=== PATIENT | female | born 1990 | race Caucasian/White ===

== ENCOUNTER 2021-02-25 17:56 | Outpatient (CLI) | payer MEDICAID, SELFPAY ==
[2021-02-25 18:17] VITALS: BP 130/87; PULSE 96; RESP 16; TEMP 36.9; O2SAT 99; BMI 27.9
[2021-02-25] MEDS: 0.9% Saline Lock 10 ML Syringe IV (18:17)
[2021-02-25 18:50] VITALS: BP 112/74; PULSE 81; RESP 16; TEMP 36.9; O2SAT 100
[2021-02-25 19:42] VITALS: BP 136/82; PULSE 78; RESP 16; TEMP 37; O2SAT 100
== END 2021-02-25 19:50 | disposition home or self-care (01) ==
LOC: MS3OUT 17:57 → MS3 17:58
PROVIDERS: PCP Family Medicine; Referring Provider Nurse Practitioner Adult Health; Visit Provider Nurse Practitioner Adult Health
DX: U07.1 COVID-19 (principal)
CPT/HCPCS: J7050; M0245; Q0245; A4216

== ENCOUNTER 2021-09-07 19:00 | Inpatient (IN) | payer MEDICAID, SELFPAY ==
[2021-09-07] VITALS (10 sets, daily range): BP systolic 114–139; BP diastolic 65–94; PULSE 72–93; TEMP 36.1–36.6; O2SAT 96–98; BMI 34.2
[2021-09-07] MEDS: Lactated Ringers 1,000 ML 50 ML IV (20:00)
[2021-09-07] MEDS: Oxytocin 30 units/NS 500 ml 30 UNITS/500 ML IV.SOLN IV (20:25)
[2021-09-07 20:30] LABS: Absolute Lymphocyte Count 1.94 X10^3/uL (0.83-4.51); Absolute Neutrophil Count 5.4 X10^3/uL (2.0-7.7); Basophil# 0.04 X10^3/uL; Basophil% 0.5 % (0-1); Eosinophil# 0.06 X10^3/uL; Eosinophils% 0.7 % (0-5); Hematocrit 33.7 % (37-47); Hemoglobin 10.7 g/dL (12.0-15.0); Lymphocyte # 1.94 X10^3/ul (0.83-4.51); Lymphocyte % 22.9 % (19-41); Mean Corp Hgb Conc 31.8 g/dL (32-36); Mean Corpuscular Hgb 27.4 pg (27.0-32.0); Mean Corpuscular Volume 86.4 fL (81-99); Mean Platelet Vol. 11.5 fl (6.2-12.0); Monocyte# 0.88 X10^3/uL; Monocyte% 10.4 % (0-10); NRBC Flagged by Analyzer 0 % (0-5); Neutrophil # 5.44 X10^3/uL (2.7-7.7); Neutrophil % 64.3 % (47-70); Platelet Count 253 K/mm3 (150-450); RBC Distribution Width CV 14.3 % (11.6-14.6); RBC Distribution Width SD 44.6 fl (35.1-43.9); White Blood Count 8.5 K/mm3 (4.4-11.0)
--- NOTE | 2021-09-07 20:53 | PCM.HP.OB ---
HPI - General General Date of Admission: 09/07/21 HPI Narrative BRITTANI BURGOS, is a 31 F who presents for induction of labor for autoimmune disorder (lupus). Patient reports history of depression, anxiety, and ITP. care was coordinated with [facility]. [facility] Medical History (Updated 09/07/21 @ 22:21 by Mildred Mcclure CNM) Anxiety Asthma Autoimmune disease Depression Headache Home Medications hydroxychloroquine 200 mg PO/SL DAILY Lupus 09/07/21 [History Last Taken 09/07/21 08:00] Allergy/AdvReac Type Severity Reaction Status Date / Time doxycycline Allergy Severe vomitting Verified 02/23/21 16:37 metronidazole [From Flagyl] Allergy Severe vomiting Verified 02/23/21 16:38 topiramate [From Topamax] Allergy Severe hives Verified 02/23/21 16:38 Penicillins Allergy hives Verified 02/23/21 16:37 Surgical History (Updated 09/07/21 @ 20:53 by Torie Samuel) History of surgery Social History Smoking Status: Former smoker History Elective abortions Hx Para 1 Spontaneous abortions Hx # Term Pregnancies Ectopic pregnancies Hx # Pregnancies Multiple births # of living children NST FHR Rate Baby A Baseline: 135 Variability:: Moderate Accelerations:: 15 x 15 Decelerations:: None NST Reactive:: Yes FHR Category:: Category I Uterine Activity:: 2-4 min ROS Eyes Eyes: Denies blurry vision, change in vision or spots in vision ENT HEENT: Denies dizziness or headache(s) Cardiovascular Cardiovascular: Denies abdominal pain, chest pain or dyspnea Respiratory/Chest Respiratory/Chest: Denies cough, dyspnea, shortness of breath at rest or shortness of breath with exertion Gastrointestinal Gastrointestinal: Denies abdominal pain, diarrhea or vomiting Genitourinary Genitourinary: Denies change in urinary stream, difficulty urinating or dysuria Musculoskeletal Musculoskeletal: Reports none Integumentary Integumentary: Denies rash Neurologic Neurologic: Denies dizziness, headache(s), memory loss or weakness Psychiatric Psychiatric: Reports none Vital Signs Vital Signs Vital Signs: 09/07/21 19:30 09/07/21 19:31 09/07/21 19:31 Temperature Temperature Source Pulse Rate 93 Blood Pressure 114/67 BP Systolic 114 BP Diastolic 67 Pulse Ox 97 09/07/21 19:30 09/07/21 19:30 Temperature 97.8 F Temperature Source Temporal Pulse Rate Blood Pressure BP Systolic BP Diastolic Pulse Ox Weight Weight: 199 lb 6.4 oz Body Mass Index (BMI) 34.2 Physical Exam Const alert, oriented x3 and no apparent distress General Appearance: cooperative Orientation / Consciousness: awake Exam Limitations: no limitations HEENT normocephalic Head and Scalp: normal to inspection Eyes General Eye: normal appearance of both eyes Neck full ROM and no lymphadenopathy Lymph Lymphatic: no lymphadenopathy noted Chest inspection of chest normal Resp normal respiratory effort, normal air movement and clear to auscultation bilaterally Effort and Inspection: able to speak in complete sentences and symmetric chest movement Cardio regular rate and regular rhythm GI normal to inspection, nondistended, normoactive bowel sounds Manual OB Exam: presentation cephalic, dilated 3, effaced 70 and station -2 Back/Spine normal ROM Extremity full ROM and no calf tenderness Skin no rashes or lesions noted General Skin Exam: no breakdown Neuro oriented x3 and CN's II-XII intact bilaterally Psych mental status grossly normal and thought process normal Labs Labs Labs: Blood Type Pending Antibody Screen Pending Hct 33.7 % (37-47) L Hgb 10.7 g/dL (12.0-15.0) L A+ Rubella- immune HB- neg HC- neg HIV- NR RPR- NR GBS negatvie Assessment & Plan (1) Systemic lupus complicating : (2) 39 weeks gestation of : PLAN: Plan Admit to labor and delivery Routine labs Start IV fluids and titrate per orders GBS negative Cat. 1 tracing, NST reactive CE- 3/70/-2 Start Pitocin at 2 mu/min and increase per policy Will recheck in 3 hours, if no change will AROM Epidural when indicated Dr. Dickens notified of admission and involved in plan of care/ collaborating physician
[2021-09-07] MEDS: LACTATED RINGERS 500 ML 999 ML IV (23:14)
[2021-09-07] MEDS: fentaNYL 100 MCG/2 ML Ampul IV (23:53)
[2021-09-07] MEDS: 0.9% Saline Lock 10 ML Syringe IV (23:53)
[2021-09-08] VITALS (53 sets, daily range): BP systolic 99–162; BP diastolic 53–82; PULSE 73–109; RESP 16–18; TEMP 36.2–36.8; O2SAT 90–99
[2021-09-08] MEDS: fentaNYL-bupivacaine (epidural) 100 ML BAG EPIDURAL (01:05)
[2021-09-08] MEDS: Ondansetron 4 MG/2 ML Vial IV (03:34)
[2021-09-08] MEDS: 0.9% Saline Lock 10 ML Syringe IV (03:34)
[2021-09-08] MEDS: Mag Hydrox/Al Hydrox/Simeth 30 ML UDC PO (03:53)
--- NOTE | 2021-09-08 05:03 | PLAC_PTH ---
PATIENT: BRITTANI BURGOS LOC: WP U#:[id number] AGE/SX: 31/F ROOM: [facility] RE09/07/[address]: Mildred Mcclure CNM : 1990 BED: 1 DIS: 09/09/2021 SPEC #: [id number] RECD: 09/08/21 07:30 STATUS: ADARSH WICHO #: [id number] IBETH: 09/08/21 05:[address]: Mildred Mcclure DEPT: SURGICAL PATHOLOGY RECD BY: Anthony Ruelas ENTERED: 09/08/21 07:51 SP TYPE: PLACENTA OTHR DR: Dr. Severo Mi MD Tissues: Placenta, NOS Procedures: Surgery Specimen Level V HEADER OPERATION: Vaginal delivery PRE-OP DIAGNOSIS: Circumvallate placenta / mom lupus TISSUE SUBMITTED: Placenta MICROSCOPIC DIAGNOSIS Segura placenta (514 gm): Umbilical cord ? trivascular with no inflammation. Placental membranes ? no pathologic change. Placental disc ? focal remote infarct with fibrinoid plaque. Increased intraparenchymal microcalcifications. Focal organizing hemorrhage. AM:jacqueline 09/10/2021 MICROSCOPIC DESCRIPTION Slides are reviewed. GROSS DESCRIPTION SPECIMEN: PLACENTA / CLINICAL INFORMATION: A. Weight: 3.67 kg B. Gestational Age: 39 weeks C. Sex: Male PLACENTAL WEIGHT (POST FIXATION): 514 gm PLACENTAL DIMENSIONS: 16.5 x 15 x 3.5 cm PLACENTAL SHAPE: Usual ovoid PLACENTAL WEIGHT FOR GESTATIONAL AGE: Within 10-99th percentile MEMBRANES - Present A. Insertion: Marginal B. Site of rupture from edge: 7.4 cm from edge of placental disc C. Color of membrane: Isaacs-cazares D. Abnormalities: None UMBILICAL CORD - Present A. Color: Isaacs-cazares B. Insertion: Eccentric C. Length: 54 cm D. Diameter: 1.2 cm E. Number of vessels: Three F. Abnormalities: None PLACENTAL DISC - Present A. Color of surface: Isaacs-cazares B. surface abnormalities: None C. Maternal cotyledons: Intact with minimal tears D. Attached retro placental clot: No clot E. Cut surface: Dark red and spongy F. Lesions: A light isaacs, triangular-shaped lesion is present in the placental floor measuring 1.5 x 1 cm. G. Separate clot: Absent SECTIONS SUBMITTED: 1. Umbilical cord ( end notched) 2. Umbilical cord, placental end 3. Membrane roll 4. Placental disc, and maternal surfaces, lesion 5. Placental disc, and maternal surfaces 6. Placental disc, and maternal surfaces AM:jacqueline 09/09/2021 TC:5 CPT: 18356
[2021-09-08] MEDS: Oxytocin 30 units/NS 500 ml 30 UNITS/500 ML IV.SOLN 334 UNITS IV (05:06)
--- NOTE | 2021-09-08 05:26 | EX.PCM.OBRPT ---
Assessment & Plan (1) 39 weeks gestation of : (2) Systemic lupus complicating : (3) (spontaneous vaginal delivery): (4) Laceration, obstetrical, first degree: Vaginal Delivery Maternal Presentation Maternal Presentation: Medically Indicated Induction Maternal Presentation: at 39.2 weeks gestation for a scheduled induction for lupus. Type of Induction: Pitocin and Amniotomy Medical Reason for Induction: Maternal Medical Condition: list: (LUPUS) Operative Information Date of Procedure: 09/08/21 Pre-Operative Diagnosis: Term gestation, induction of labor Post-Operative Diagnosis: Same, live male Surgery / Procedure Performed: Spontaneous Vaginal Delivery Type of Anesthesia: Epidural Drain: [place] to straight drain Estimated Blood Loss: 300 Time of Delivery: 05:03 Findings Description of Procedure: Called to patient's room for complete dilation. Provided bedside support and pushed with patient. head delivered over intact perineum. Nuchal cord x2 around neck and easily reduced. Anterior shoulder followed by remainder of infant body delivered with next push. Vigorous male placed on maternal abdomen and was attended to by nursing. Pitocin IV started for active management of the third stage. 3 vessel cord clamped and cut by patient's mother after 3 minutes. Infant placed immediately skin to skin with patient. Placenta delivered spontaneously and intact. Circumvallate placenta noted. Sent to pathology due to maternal autoimmune disease. First degree laceration repaired in usual fashion using 3-0 Vicryl Rapid. Hemostasis obtained. Fundus firm 2 below U. EBL 300 APGARS Mom and infant bonding good at this time. Dr. Dickens notified of delivery. Presentation: Vertex Amniotic Membrane Rupture Type: Artificial Time of Membrane Rupture: 2305 Amniotic Fluid Description: Clear and - (Terminal mec) Placental Delivery Description: Spontaneous Placenta Disposition: Sent to Pathology Specimen(s) Removed: Circumvallate Placenta noted Cord Vessel Description: 3 Vessels Cord Entanglement: Around neck x 2, loose Nuchal Cord Compression: Without compression Infant A Gender: Male (1 minute): 8 (5 minute): 9 Delayed Cord Clamping: Yes Post Vaginal Delivery Medications Given After Delivery: IV Pitocin Episiotomy Description: None Laceration: 1st degree
[2021-09-08 07:30] LABS: Pathology Specimen OB SEE PATHOLOGY REPORT
--- NOTE | 2021-09-08 08:00 | NURSING ---
Epidural catheter removed, blue tip intact.
[2021-09-08] MEDS: Acetaminophen 500 MG Tablet 1000 MG PO (08:08)
[2021-09-08] MEDS: Hydroxychloroquine 200 MG Tablet PO (09:33)
[2021-09-08] MEDS: Prenatal Vits Tablet 1 TABLET PO (11:05)
[2021-09-08] MEDS: Naproxen 500 MG Tablet PO (23:30)
[2021-09-09 05:10] VITALS: BP 109/65; PULSE 66; RESP 16; TEMP 37.2; O2SAT 97
[2021-09-09 07:50] VITALS: BP 116/66; PULSE 87; RESP 16; TEMP 36.2; O2SAT 98
[2021-09-09] MEDS: Hydroxychloroquine 200 MG Tablet PO (09:45)
[2021-09-09] MEDS: Senna/Docusate Sodium 1 Tablet PO (09:45)
[2021-09-09] MEDS: Prenatal Vits Tablet 1 TABLET PO (09:46)
--- NOTE | 2021-09-09 12:01 | PCM.PN.OB ---
Subjective Subjective Well controlled. Average lochia Objective Data Objective Data Vital Signs: Vital Signs Temp Pulse Resp BP Pulse Ox O2 Del Method 97.2 F L 87 16 116/66 98 Room Air 09/09/21 07:50 09/09/21 07:50 09/09/21 07:50 09/09/21 07:50 09/09/21 07:50 09/09/21 07:50 Oxygen Delivery Method Room Air Weight: 90.446 kg Body Mass Index (BMI) 34.2 Intake & Output: Intake and Output for Last 24 Hours 09/07/21 09/08/21 09/09/21 23:59 23:59 23:59 Intake Total 516.35 / 516.35 1700.67 / 1700.67 Output Total 2100 / 2100 Balance 516.35 / 516.35 -399.33 / -399.33 Lab / Micro Data Result Diagrams: 09/07/21 20:00 Micro: Microbiology 09/07/21 20:00 Nasal Secretion SARS-CoV-2 Antigen (Rapid) - Final Physical Exam Const alert and no apparent distress Narrative: Fundus firm, below umbilicus. Assessment & Plan (1) (spontaneous vaginal delivery): COMMENT: day #1. Infant is breast-feeding and doing well. Patient is doing well. Desires discharge home later today if okay with pediatrics (2) 39 weeks gestation of :
--- NOTE | 2021-09-09 12:01 | PCM.DC.SUM ---
Providers Date of Admission: 09/07/21 Date of Discharge: 09/09/21 Primary Care Physician: Dr. Severo Mi MD Reason For Visit: INDUCTION Diagnosis Discharge Diagnosis (1) (spontaneous vaginal delivery): Status: Acute Code(s): O80 - Encounter for full-term uncomplicated delivery (2) 39 weeks gestation of : Status: Acute Code(s): Z3A.39 - 39 weeks gestation of Medications at Discharge Home Medications 1 tablet PO/SL DAILY 09/07/21 hydroxychloroquine 200 mg PO/SL DAILY Lupus 09/07/21 Hospital Course Operations - ( on 09/08/2021) Procedures None Summary of Care Provided Hospital Course: 31-year-old multigravida female admitted for induction of labor due to diagnosis of lupus. She had a spontaneous vaginal delivery at 39 weeks without complication. was doing well. By day #1 patient was urinating, ambulating and tolerating regular diet and desired discharge home. Weight / BMI Weight Weight: 90.446 kg Body Mass Index (BMI) 34.2 ABG / Lab / Microbiology Data Result Diagrams: 09/07/21 20:00 Microbiology: Microbiology 09/07/21 20:00 Nasal Secretion SARS-CoV-2 Antigen (Rapid) - Final D/C Instructions May resume sexual activity in: 6 weeks Please Follow Up With: Mana Phillips MD When: Follow up with our office in 1-2 and 6 weeks or as needed. [phone] Meaningful Use Info Meaningful Use Diagnoses (Choose all that apply): None applicable Discharge Plan Admission Admit Date/Time: 09/07/21 19:00 Primary Reason for Your Visit: Vaginal delivery Attending Provider: Mildred Mcclure Primary Care Provider: Severo Mi Discharge Orders/Prescriptions Prescriptions: No Action hydroxychloroquine 200 mg capsule 200 mg PO/SL DAILY 1 tablet PO/SL DAILY Referrals / Follow Up: Severo Mi MD [Primary Care Provider] - Disposition Disposition (needs filled in before D/C Order can be placed): Home, Self Care
--- NOTE | 2021-09-09 14:45 | NURSING ---
johan into see pt
[2021-09-09 16:00] VITALS: BP 113/58; PULSE 82; RESP 15; TEMP 36.2
--- NOTE | 2021-09-09 17:54 | NURSING ---
1710 nursed from 1600 to 1710
== END 2021-09-09 17:50 | disposition home or self-care (01) | DRG 560 ==
PROVIDERS: Admitting Provider Advanced Practice Midwife; PCP Family Medicine; Visit Provider Advanced Practice Midwife
DX: O99.892 Other specified diseases and conditions complicating childbirth (principal); Z37.0 Single live birth; M32.9 Systemic lupus erythematosus, unspecified; O43.113 Circumvallate placenta, third trimester; O70.0 First degree perineal laceration during delivery; O69.81X0 Labor and delivery complicated by cord around neck, without compression, not applicable or unspecified; Z3A.39 39 weeks gestation of pregnancy; Z86.16 Personal history of COVID-19; Z87.891 Personal history of nicotine dependence
CPT/HCPCS: 59025; 59050; 85025; 86850; 86900; 86901; 87811; 88307; 99218; 99406; J7120; A4216; G0378; J2405

== ENCOUNTER 2023-02-05 14:05 | Outpatient (CLI) | payer MEDICAID, SELFPAY ==
[2023-02-05 14:21] VITALS: BMI 35.6
[2023-02-05 14:29] VITALS: TEMP 36.4
[2023-02-05 14:30] VITALS: BP 126/78; PULSE 81; PULSE 84; O2SAT 97
[2023-02-05 14:38] LABS: Color, Urine Yellow (Yellow); Glucose, Dipstick Normal (Normal); Ketone-Dipstick 50 mg/dl (Negative); Leukocyte Esterase-Dipstick 25 /ul (Negative); Nitrite-Dipstick Negative (Negative); Occult Blood-Urine 250 /ul (Negative); Protein-Dipstick 15 mg/dl (Negative); Specific Gravity, Urine 1.025 (1.002-1.030); Urine Clarity Clear (Clear); Urine Urobilinogen Normal (Normal)
[2023-02-05 14:49] LABS: Urine Bilirubin Dipstick 1 mg/dL (Negative)
[2023-02-05] MEDS: Lactated Ringers 1,000 ML 999 ML IV (15:12)
[2023-02-05] MEDS: Cefazolin 2 GM in 0.9% Normal Saline (100mL Bag) 100 ML IV (15:23)
[2023-02-05 17:19] VITALS: BP 119/61; PULSE 75; TEMP 36.6
--- NOTE | 2023-02-09 07:52 | OB.TRI.HP_ITS ---
HPI - General General Date of Service: 02/05/23 HPI Narrative BRITTANI BURGOS, is a 32 F @ 36.6 weeks c/o lower back pain. Denies VB, lof. PFSH PFSH Medical History (Updated 02/09/23 @ 07:[address] Pham Brice MD) Anxiety Asthma Autoimmune disease Depression Headache (spontaneous vaginal delivery) Home Medications 1 tablet PO/SL DAILY 09/07/21 [History Last Taken 09/06/21 09:00] hydroxychloroquine 200 mg PO/SL DAILY Lupus 09/07/21 [History Last Taken 09/07/21 08:00] Allergy/AdvReac Type Severity Reaction Status Date / Time doxycycline Allergy Severe vomitting Verified 02/23/21 16:37 metronidazole [From Flagyl] Allergy Severe vomiting Verified 02/23/21 16:38 topiramate [From Topamax] Allergy Severe hives Verified 02/23/21 16:38 Penicillins Allergy hives Verified 02/23/21 16:37 Surgical History (Updated 09/07/21 @ 20:53 by Torie Samuel) History of surgery Social History Smoking Status: Former smoker History Elective abortions Hx Para 1 Spontaneous abortions Hx # Term Pregnancies Ectopic pregnancies Hx # Pregnancies Multiple births # of living children NST FHR Rate Baby A Baseline: 130 Variability:: Moderate Accelerations:: 15 x 15 Decelerations:: None NST Reactive:: Yes FHR Category:: Category I Uterine Activity:: irregular Assessment & Plan (1) Hematuria: (2) contractions: (3) 36 weeks gestation of : (4) Back pain affecting : PLAN: Plan @ 36.6 weeks- lower back pain, hematuria, contractions, false pret erm labor 1) monitored for cervical change- unchanged from 4cm 2) IVF and 2g ancef given 3) Urine culture sent 4) stone vs UTI - will call office with update Monday02/06/23 5) dc home
== END 2023-02-05 19:20 | disposition home or self-care (01) ==
LOC: OBT 14:08 → WP 14:09
PROVIDERS: PCP Family Medicine; Visit Provider Obstetrics & Gynecology
DX: O47.03 False labor before 37 completed weeks of gestation, third trimester (principal); O99.891 Other specified diseases and conditions complicating pregnancy; M54.50 Low back pain, unspecified; R31.9 Hematuria, unspecified; Z3A.36 36 weeks gestation of pregnancy; Z87.891 Personal history of nicotine dependence
CPT/HCPCS: 96365; 59025; 59050; 81002; 87086; 87088; 99221; J7120; G0378

== ENCOUNTER 2023-02-16 10:54 | Inpatient (IN) | payer MEDICAID, SELFPAY ==
[2023-02-16] VITALS (57 sets, daily range): BP systolic 97–143; BP diastolic 52–82; PULSE 73–106; RESP 16; TEMP 36.4–36.8; O2SAT 91–100; BMI 35.6
[2023-02-16 09:29] LABS: ROM Internal Control Test YES-OK TO RESULT pt. (Internal QC); ROM Patient Test Negative (Negative); Record Kit Lot#, ROM+ K1374
[2023-02-16] MEDS: Lactated Ringers 1,000 ML 50 ML IV (11:30)
[2023-02-16 11:49] LABS: Absolute Lymphocyte Count 1.31 X10^3/uL (0.83-4.51); Absolute Neutrophil Count 5.7 X10^3/uL (2.0-7.7); Basophil# 0.04 X10^3/uL; Basophil% 0.5 % (0-1); Eosinophil# 0.05 X10^3/uL; Eosinophils% 0.6 % (0-5); Hematocrit 33.2 % (37-47); Hemoglobin 10.2 g/dL (12.0-15.0); Lymphocyte # 1.31 X10^3/ul (0.83-4.51); Lymphocyte % 16.5 % (19-41); Mean Corp Hgb Conc 30.7 g/dL (32-36); Mean Corpuscular Hgb 25.2 pg (27.0-32.0); Mean Platelet Vol. 12.4 fl (6.2-12.0); Monocyte# 0.72 X10^3/uL; Monocyte% 9.1 % (0-10); NRBC Flagged by Analyzer 0 % (0-5); Neutrophil # 5.65 X10^3/uL (2.7-7.7); Neutrophil % 71.4 % (47-70); POSITIVE COUNT YES; Platelet Count 206 K/mm3 (150-450); RBC Distribution Width CV 14.4 % (11.6-14.6); Red Blood Count 4.05 M/mm3 (4.2-5.4); White Blood Count 7.9 K/mm3 (4.4-11.0)
[2023-02-16] MEDS: Oxytocin 15 Units/NS 250ml 15 UNITS/250 ML IV.SOLN 2 UNITS IV (11:52)
[2023-02-16 12:03] LABS: Bedside Glucose 81 mg/dL (74-106)
[2023-02-16 12:14] LABS: Syphilis Antibodies Non-reactive
[2023-02-16] MEDS: LACTATED RINGERS 500 ML 999 ML IV ×2 (12:30→14:35)
[2023-02-16 12:35] LABS: Amphetamine Urine VISTA NEGATIVE (<1000 ng/mL); Barbiturate Urine VISTA NEGATIVE (< 200 ng/mL); Benzodiazepine Urine VISTA NEGATIVE (< 200 ng/mL); Cocaine Urine VISTA NEGATIVE (< 300 ng/mL); Ecstacy Urine VISTA NEGATIVE (< 500 ng/mL); Methadone Urine VISTA NEGATIVE (< 300 ng/mL); PCP Urine VISTA NEGATIVE (< 25 ng/mL); THC Urine VISTA NEGATIVE (< 50 ng/mL); Vista UDS pH Range 6
[2023-02-16 13:29] LABS: Bedside Glucose 75 mg/dL (74-106)
--- NOTE | 2023-02-16 13:45 | PCM.HP.OB ---
HPI - General General Date of Admission: 02/16/23 Date of Service: 02/16/23 HPI Narrative BRITTANI BURGOS, is a 32 F who presents with contractions. Maternal Data Information Final ALEXANDRA: 02[birth year] Gestational age: 38&3 PFSH PFSH Medical History Anxiety Asthma Autoimmune disease Depression Gestational diabetes Headache (spontaneous vaginal delivery) Home Medications 1 tablet PO/SL DAILY 09/07/21 [History Last Taken 02/16/23 07:00 1 tab] hydroxychloroquine 200 mg PO/SL DAILY Lupus 09/07/21 [History Last Taken 02/16/23 07:00 200] Allergy/AdvReac Type Severity Reaction Status Date / Time doxycycline Allergy Severe vomitting Verified 02/16/23 08:52 metronidazole [From Flagyl] Allergy Severe vomiting Verified 02/16/23 08:52 topiramate [From Topamax] Allergy Severe hives Verified 02/16/23 08:52 Penicillins Allergy hives Verified 02/16/23 08:52 Surgical History History of surgery Social History Smoking Status: Former smoker History Elective abortions Hx Para 2 Spontaneous abortions Hx # Term Pregnancies Ectopic pregnancies Hx # Pregnancies Multiple births # of living children NST FHR Rate Baby A Baseline: 120 Variability:: Moderate Accelerations:: 15 x 15 Decelerations:: Variable Uterine Activity:: Q2-3 min Vital Signs Vital Signs Vital Signs: 02/16/23 08:39 02/16/23 08:39 02/16/23 08:39 Temperature Temperature Source Temporal Pulse Rate 106 H Blood Pressure 135/72 H BP Systolic 135 BP Diastolic 72 Pulse Ox 02/16/23 08:39 02/16/23 11:06 02/16/23 11:06 Temperature 98.2 F Temperature Source Pulse Rate 81 Blood Pressure 123/73 H BP Systolic 123 BP Diastolic 73 Pulse Ox 02/16/23 11:06 02/16/23 11:06 02/16/23 11:06 Temperature Temperature Source Temporal Pulse Rate 90 Blood Pressure BP Systolic BP Diastolic Pulse Ox 98 02/16/23 11:06 02/16/23 12:14 02/16/23 12:14 Temperature 98.0 F Temperature Source Temporal Pulse Rate Blood Pressure 119/73 BP Systolic 119 BP Diastolic 73 Pulse Ox 02/16/23 12:14 02/16/23 12:14 02/16/23 12:14 Temperature 97.9 F Temperature Source Pulse Rate 85 Blood Pressure BP Systolic BP Diastolic Pulse Ox 97 02/16/23 13:33 02/16/23 13:33 02/16/23 13:32 Temperature Temperature Source Temporal Pulse Rate 100 Blood Pressure 143/82 H BP Systolic 143 BP Diastolic 82 Pulse Ox 02/16/23 13:33 02/16/23 13:33 02/16/23 13:32 Temperature 97.8 F Temperature Source Pulse Rate 102 H Blood Pressure BP Systolic BP Diastolic Pulse Ox 97 02/16/23 13:42 02/16/23 13:42 Temperature Temperature Source Pulse Rate 97 Blood Pressure BP Systolic BP Diastolic Pulse Ox 100 Weight Weight: 208 lb Body Mass Index (BMI) 35.6 Physical Exam Const alert and oriented x3 GI soft to palpation and non-tender Inspection: gravid external exam normal Narrative: cvx - 7/70/-1, AROM clear fluid Labs Labs Labs: Blood Type A POSITIVE Antibody Screen NEGATIVE Hct 33.2 % (37-47) L Hgb 10.2 g/dL (12.0-15.0) L Syphilis Total Ab Non-reactive Rhogam given: No Assessment & Plan (1) 38 weeks gestation of : COMMENT: @ 38&3 PLAN: Plan Admit to L&D AROM & augment with pitocin GBS negative Pain - epidural EFW - less than 4500g, patient with adequate pelvis
[2023-02-16] MEDS: fentaNYL-bupivacaine (epidural) 100 ML BAG EPIDURAL (13:52)
[2023-02-16 14:48] LABS: Bedside Glucose 89 mg/dL (74-106)
[2023-02-16 15:42] LABS: Bedside Glucose 121 mg/dL (74-106)
[2023-02-16] MEDS: Ondansetron 4 MG/2 ML Vial IV (16:45)
--- NOTE | 2023-02-16 17:14 | EX.PCM.OBRPT ---
Maternal Data Information Final ALEXANDRA: [birth year] Gestational age: 38&3 Vaginal Delivery Maternal Presentation Maternal Presentation: Active Labor Operative Information Date of Procedure: 02/16/23 Pre-Operative Diagnosis: Labor Post-Operative Diagnosis: Labor Surgery / Procedure Performed: Spontaneous Vaginal Delivery Type of Anesthesia: Epidural Estimated Blood Loss: 200ml Findings Description of Procedure: Patient prepped & draped when C/C/+2. She pushed well to deliver the head. head gently guided to allow delivery of anterior and posterior shoulders. No excess traction placed on head. Body delivered and 3VC clamped & cut in delayed fashion. Placenta delivered with gentle traction and good uterine tone obtained. Presentation: POLLO Amniotic Membrane Rupture Type: Artificial Amniotic Fluid Description: Clear Placental Delivery Description: Expressed Placenta Disposition: [facility] Specimen(s) Removed: Placenta Cord Vessel Description: 3 Vessels Cord Entanglement: None Infant A Gender: Male (1 minute): 8 (5 minute): 9 Delayed Cord Clamping: Yes Post Vaginal Delivery Medications Given After Delivery: IV Pitocin Episiotomy Description: None Laceration: None Complication Complications: None
[2023-02-16 17:49] LABS: Bedside Glucose 92 mg/dL (74-106)
[2023-02-16] MEDS: Oxytocin 15 Units/NS 250ml 15 UNITS/250 ML IV.SOLN 83 UNITS IV (18:35)
[2023-02-16] MEDS: Ibuprofen 600 MG Tablet PO (18:37)
[2023-02-17] MEDS: Acetaminophen 500 MG Tablet 1000 MG PO (00:42)
[2023-02-17 00:45] VITALS: BP 112/57; PULSE 92; RESP 16; TEMP 36.6
[2023-02-17 05:06] VITALS: BP 102/55; PULSE 85; RESP 16; TEMP 36.3
[2023-02-17 06:18] LABS: Bedside Glucose 125 mg/dL (74-106)
--- NOTE | 2023-02-17 08:42 | PN_ITS ---
Subjective Subjective patient seen at bedside, doing well. Patient reports good pain control. lochia mild. Objective Data Objective Data Vital Signs: Vital Signs Temp Pulse Resp BP Pulse Ox O2 Del Method 97.4 F L 85 16 102/55 L 94 Room Air 02/17/23 05:06 02/17/23 05:06 02/17/23 05:06 02/17/23 05:06 02/16/23 19:49 02/17/23 05:06 Oxygen Delivery Method Room Air Weight: 94.347 kg Body Mass Index (BMI) 35.6 Intake & Output: Intake and Output for Last 24 Hours 02/15/23 02/16/23 02/17/23 23:59 23:59 23:59 Intake Total 2983.33 / 2983.33 Output Total 1175 / 1175 Balance 1808.33 / 1808.33 Lab / Micro Data 02/16/23 11:30 Labs: Laboratory Results - last 24 hr 02/16/23 08:50: Vag Amniotic Fld Detect Negative 02/16/23 11:30: WBC 7.9, RBC 4.05 L, Hgb 10.2 L, Hct 33.2 L, MCV 82.0, MCH 25.2 L, MCHC 30.7 L, RDW Std Deviation 42.0, RDW Coeff of Yogesh 14.4, Plt Count 206, MPV 12.4 H, Immature Gran % (Auto) 1.900 H, Neut % (Auto) 71.4 H, Lymph % (Auto) 16.5 L, Woodward % (Auto) 9.1, Eos % (Auto) 0.6, Baso % (Auto) 0.5, Absolute Neuts (auto) 5.7, Absolute Lymphs (auto) 1.31, Nucleated RBC % 0, Syphilis Total Ab Non-reactive, Blood Type A POSITIVE, Antibody Screen NEGATIVE 02/16/23 11:42: POC Glucose 81 02/16/23 12:05: Urine Opiates Screen NEGATIVE, Urine Methadone Screen NEGATIVE, Ur Barbiturates Screen NEGATIVE, Ur Phencyclidine Scrn NEGATIVE, Ur Amphetamines Screen NEGATIVE, MDMA (Ecstasy) Screen NEGATIVE, U Benzodiazepines Scrn NEGATIVE, Urine Cocaine Screen NEGATIVE, U Cannabinoids Screen NEGATIVE, Ur Drug Screen Comment 02/16/23 12:53: POC Glucose 75 02/16/23 14:12: POC Glucose 89 12/07/23 15:21: POC Glucose 121 H 02/16/23 17:17: POC Glucose 92 02/17/23 05:51: POC Glucose 125 H Physical Exam Const alert and oriented x3 General Appearance: cooperative HEENT normocephalic Neck General: normal visual inspection GI soft to palpation and non-distended GI Narrative: Fundus firm Extremity normal to inspection and no calf tenderness Skin no rashes or lesions noted Neuro oriented x3 and CN's II-XII intact bilaterally Psych mental status grossly normal Assessment & Plan Assessment/Plan (1) Vaginal delivery: PLAN: Plan PPD#1 , Doing well Routine care pain mgmt ambulation dc home
--- NOTE | 2023-02-17 08:43 | DCINST_ITS ---
Discharge Instructions Diet Discharge Diet: No restrictions Activity May resume sexual activity in: 6-8 weeks Dressing / Incision Call your doctor if you observe: Fever of 101 or Higher, Inability to urinate, Using more than 1 pad per hour and Uncontrolled pain Follow Up Care Please Follow Up With: Pham Brice MD When: 1-2 weeks post and again at 6 weeks post . [phone] Test Results: Test results from this visit will be discussed in further detail at your follow- up appointment, if applicable. Discharge Plan Admission Admit Date/Time: 02/16/23 10:54 Attending Provider: Sandi Lopez Primary Care Provider: Severo Mi Discharge Orders/Prescriptions Prescriptions: No Action hydroxychloroquine 200 mg capsule 200 mg PO/SL DAILY 1 tablet PO/SL DAILY Referrals / Follow Up: Severo Mi MD [Primary Care Provider] - Disposition Disposition (needs filled in before D/C Order can be placed): Home, Self Care
[2023-02-17 09:40] VITALS: BP 113/71; PULSE 76; RESP 16; TEMP 36.6
[2023-02-17 11:12] VITALS: BP 119/53; PULSE 91; RESP 18; TEMP 36.6
--- NOTE | 2023-02-17 17:09 | CASEMGMT ---
Labor and Delivery Social Work Sw consult submitted due to history of opiate use, nonce since 2011. Sw presented to bedside and introduced self to mother of baby (MOB- Kalyani) and father of baby (FOB). Sw explained reason for social work involvement. Sw completed psychosocial assessment and assessed for any needs or concerns at this time. Parents report they have obtained all necessary baby supplies and have adequate supports in place. MOB and FOB aware of signs and symptoms of baby blues and depression to be on the look out for. MOB open and willing to discuss her substance use history. MOB stated that she was an opiate user until 2011 when she went to [facility] for detox and then engaged in treatment through [facility]. MOB denies any substance use since that time, including prior to and during . No issues or concerns regarding domestic or intimate partner violence. Sw provided literature and educational materials for parents to review. Parents were talkative and receptive to sw involvement and support. Complete psychosocial assessment to follow. No issues or concerns at this time, ok for MOB and baby to be discharged when medically ready. Alexi Moody, [employer], HEADER UP
[2023-02-17 19:09] VITALS: BP 108/63; PULSE 68; RESP 15; TEMP 36.3
--- NOTE | 2023-02-17 20:17 | NURSING ---
RN notes late entry due to bedside pt care.
--- NOTE | 2023-02-21 10:10 | CASEMGMT ---
Social Work Assessment Labor and Delivery Unit Patient Address:[facility] [place] [address] Phone number: [phone] Date of Referral: 02/16/23 Time of Referral:? 1117 Referred By: Sandi Lopez Date of Intervention: ??02/17/23 Time of Intervention:? 1600 Reason for Referral:? Hx of opiate use- none since 2011 Sw completed chart review and acknowledges social work consult due to maternal history of opiate use. Sw presented to bedside and introduced self to mother of baby (NITHIN- Kalyani) and father of baby (FOB-Rishabh). Sw explained reason for social work consult and completed psychosocial assessment. History obtained from: medical records, MOB and FOB Household composition: Currently residing in the family home is NITHIN, STEWART, their older son (Javier : 09/08/21) and now baby. Patient's parent/guardian status:? ?NITHIN states that she and STEWART have been together for 4 years, they were introduced to each other by mutual friends. No concerns reported of domestic violence or intimate partner violence. Medical History: ?NITHIN is 32 year old female who is 4, para 1- now 2 following labor and delivery of . NITHIN received routine care with [facility] during . NITHIN delivered baby on 02/16/23 via vaginal delivery at 38 weeks gestation. Baby boy, August Pressley, was born weighing 8lb and 11oz and his apgars were 8 and 9 at one and five minutes of life respectfully. NITHIN states that she is bottle feeding and it is going well, and that baby will be followed by Dr. Hugo for pediatrics. Educational Status:? Both parents graduated from high school, both parents deny concerns with reading, learning and comprehension. Financial Status: FOFamilia is employed at [employer] and is able to take off of work until March 14. NITHIN is a stay at home mom and does not work at this time. Supplies:?? Parents report to obtaining all necessary baby supplies necessary, including: car seat, safe sleep space, clothes, diapers, wipes and feeding supplies. Childcare/Caregiver(s):? MOB will be primary caregiver to baby along with FOB when not at work. MOB states that they will also have help when necessary from maternal grandparents. Transportation:?? Both parents have their drivers license and reliable means of transportation. No transportation barriers at this time. Programs/Agencies Involved: ??MOB is connected to resources through [employer] services including [employer]. ? Children Services/Legal Issues:??No history of involvement, no issues or concerns warranting referral at this time. ? Behavioral Health Issues: ??Mental Health History:??FOB states that he has a history of anxiety. FOB states that he is not prescribed medication and is able to manage his symptoms on his own. FOB denies that symptoms interfere with daily life. MOB states that she has been diagnosed with anxiety and depression and does have a history of depression following the delivery of their first son. MOB states that she has been prescribed zoloft in the past. MOB states that when she experienced depression in the past she was sad, depressed and lost interest in doing things. ? Substance Use History: MOB denies substance use prior to and during . MOB disclosed that she does have a substance use history of opiate use. MOB states that she has not used since 2011, when she completed detox at [facility] and then engaged in ongoing treatment with [facility]. MOB states that she has been sober since then. Family History:?Both parents deny any family history of substance use and significant mental health history. ? Drug Screens: ?MOB urine screen was negative. ? Family/Social Stressors:? Parents deny any stressors or concerns at this time. Support Systems: Parents state that they have a lot of natural supports found in family and friends. MOB states that her biggest supports are FOB and her parents. Depression/Shaken Baby/Safe Sleeping:? Sw educated parents on signs and symptoms of baby blues and depression and anxiety. Sw provided literature for parents to review that also includes information on appropriate coping skills to utilize if MOB would struggle. Sw also encouraged parents to talk to each other and discuss what FOFamilia can do to provide support to MOB if she were to struggle during this period. Parents expressed understanding. Sw educated parents on shaken baby prevention and ABCs of safe sleep. Parents expressed understanding. ASSESSMENT:? Both parents were talkative and engaged in conversation during psychosocial assessment. MOB and baby admitted following labor and delivery and medically eligible for discharge today. MOB and FOB have mental health history, but deny that symptoms are interfering with every day life. Parents have obtained all necessary baby supplies and have adequate supports in place. MOB has engaged in mental health and substance use treatment services in the past. MOB talkative and engaged during assessment. MOB holding baby and observed providing loving and tender care appropriately. PLAN:? MOB and baby to be discharged when medically ready. ?No other services requested or indicated. Alexi Moody, FRUIT INSPECTOR, VENDING MACHINE HOST/HOSTESS
== END 2023-02-17 19:40 | disposition home or self-care (01) | DRG 560 ==
LOC: WPOUT 11:12 → WP 11:13
PROVIDERS: Admitting Provider Obstetrics & Gynecology; PCP Family Medicine; Referring Provider Obstetrics & Gynecology; Visit Provider Obstetrics & Gynecology
DX: O76 Abnormality in fetal heart rate and rhythm complicating labor and delivery (principal); Z37.0 Single live birth; M32.9 Systemic lupus erythematosus, unspecified; O99.892 Other specified diseases and conditions complicating childbirth; Z3A.38 38 weeks gestation of pregnancy; Z79.899 Other long term (current) drug therapy; Z86.16 Personal history of COVID-19; Z87.891 Personal history of nicotine dependence; Z87.59 Personal history of other complications of pregnancy, childbirth and the puerperium
CPT/HCPCS: 59050; 80307; 82962; 84112; 85025; 86780; 86850; 86900; 86901; 99221; J7120; G0378; J2405